=== PATIENT | male | born 1930 | race Two or more races ===

== ENCOUNTER → 2018-04-26 | Outpatient (CLI) | payer OTHER, MEDICARE ==
--- NOTE | 2018-04-26 15:21 | RAD ---
Left knee, 3 views, 04/26/2018: HISTORY: Postop knee pain No previous knee radiographs are available at this time for comparison purposes. A knee prosthesis is in place in satisfactory position. No loosening or infection is seen. No fracture or subluxation is evident. IMPRESSION: 1. 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 2. No acute bony abnormality is detected. Electronically signed by: Poncho Gentile MD (04/26/2018 3:16 PM) [facility]
--- NOTE | 2018-04-26 16:06 | RAD ---
MRI Lumbar Spine without contrast History: Chronic low back pain, lumbar radiculopathy, previous lumbar spine surgery, lumbar radiculitis Technique: Multiplanar, multi sequential noncontrast MR imaging was performed of the lumbar spine. Comparison: None Findings: Most inferior fully formed intervertebral disc space is considered L5-S1 for this report. Lumbar vertebral body stature is maintained. There is grade 1 posterior subluxation L3 relative L4 by about 5 to 6 mm also grade 1 posterior subluxation L2 relative L3 by about 5 mm. There is reversal of the lordotic curvature more superiorly of the lumbar spine. There is advanced degenerative disc disease L2-3 and to a somewhat lesser degree at L3-4 and L1-2, mild to moderate degenerative disc disease T12-L1 and mild disc desiccation L4-5 and L5-S1. There is fairly prominent L3-4 and minimal L1-2 and L2-3 endplate edema probably reactive/degenerative in etiology. Conus terminates at L1. There is exophytic T2 hyperintense lesion of the visualized left kidney about 1.3 cm more likely a cyst. L1-L2: There is negligible disc osteophyte complex. Spinal canal and neural foramina are adequate. L2-L3: There is minimal disc osteophyte complex associated with the posteriorly subluxed L2 vertebral body margin. There is [id number] facet degenerative change. Spinal canal is adequate. There is minimal inferior narrowing of the left neural foramen, right neural foramen adequate. L3-L4: There is disc osteophyte complex and bulge superimposed on the posteriorly subluxed L3 vertebral body margin. There is moderate to severe facet degenerative change bilaterally. There is mild buckling of the residual ligamentum flavum. There has been posterior decompression. There is mild to moderate narrowing of the far lateral recesses bilaterally, also mild narrowing of the transverse dimension of the central canal. There is severe, right greater than left neural foramina compromise due to facet hypertrophic change in combination with posteriorly subluxed L3 vertebral body margin and disc osteophyte complex. L4-L5: There is mild facet degenerative change, also buckling of the ligamentum flavum greater on the right. There is mild narrowing of the far left lateral recess. There is very mild narrowing of the right neural foramen, left neural foramen overall adequate. L5-S1: Spinal canal and neural foramina are adequate. Impression: 1. Most inferior fully formed intervertebral disc space is considered L5-S1 for this report. There is grade 1 posterior subluxation of L3 relative to L4 and L2 relative to L3. There is advanced degenerative disc disease at L2-3 and to a somewhat lesser degree at L1-2 and L3-4. Endplate edema greatest L3-4 is probably reactive/degenerative in etiology. 2. There is [id number] narrowing of the far lateral recesses bilaterally at L3-4, posterior decompression at this level with mild narrowing of the transverse dimension of the central canal due to facet hypertrophic change. There is mild narrowing of the far left lateral recess L4-5. 3. There is severe bilateral L3-4 neural foramina compromise somewhat greater on the right. Electronically signed by: Grupo Bhandari MD (04/26/2018 4:01 PM) [id number]
== END | disposition home or self-care (01) ==
LOC: MRI 14:31
PROVIDERS: ATTEND Physical Medicine & Rehabilitation
DX: S33.120A Subluxation of L2/L3 lumbar vertebra, initial encounter (principal); S33.130A Subluxation of L3/L4 lumbar vertebra, initial encounter; M48.061 Spinal stenosis, lumbar region without neurogenic claudication; M25.78 Osteophyte, vertebrae; M25.562 Pain in left knee; R60.0 Localized edema; X58.XXXA Exposure to other specified factors, initial encounter; Y93.89 Activity, other specified; Y92.89 Other specified places as the place of occurrence of the external cause; Y99.8 Other external cause status
CPT/HCPCS: 72148; 73562